=== PATIENT | female | born 1975 | race Caucasian/White ===

== ENCOUNTER → 2017-10-28 17:59 | Outpatient (CLI) | payer OTHER, SELFPAY ==
--- NOTE | 2017-10-28 | CYSPIN_PTH ---
PATIENT: NEELIMA ARREDONDO LOC: [facility] U#:[id number] AGE/SX: 50/F ROOM: RE10/28/[address]: Dr. Natan Crocker MD : 1975 BED: DIS: SPEC #: [id number] RECD: 10/28/17 16:25 STATUS: MADELEINE MARIVEL #: [id number] ENRICO: 10/28/17 00:[address]: Natan Crocker DEPT: CYTOLOGY RECD BY: Carroll Delgado ENTERED: 10/29/17 07:52 SP TYPE: CYSPIN FL OTHR DR: Dr. Jeff Schuster MD Tissues: Urine Procedures: Pap Stain (control) Special Stain Group II Cytospin Fluid HEADER OPERATION: Not noted PRE-OP DIAGNOSIS: Hematuria TISSUE SUBMITTED: Urine for cytology DIAGNOSIS CYTOLOGY Urine for cytology (cytospin): Negative for malignant cells. AM:cong 10/30/17 COMMENT The specimen primarily contains squamous epithelial cells. Clinical correlation is suggested. CYTOLOGY STUDY Slides are reviewed. CYTOLOGY GROSS Received is 70 ml of cloudy orange fluid labeled with the patient's name and and designated per the requisition as urine. Submitted for cytology preparation. 10/29/17 TC:5 CPT: 47451
[2017-10-28 18:01] LABS: Cytology, Body Fluid / CSF SEE PATHOLOGY REPORT
== END ==
PROVIDERS: Family Provider Family Medicine; PCP Family Medicine; Visit Provider Urology
DX: R31.9 Hematuria, unspecified (principal)
CPT/HCPCS: 87086; 87088; 88108; 88313

== ENCOUNTER → 2018-01-27 17:50 | Outpatient (CLI) | payer OTHER, SELFPAY ==
--- NOTE | 2018-01-27 09:30 | CYSPIN_PTH ---
PATIENT: NEELIMA ARREDONDO LOC: [facility] U#:[id number] AGE/SX: 50/F ROOM: RE01/27/[address]: Dr. Natan Crocker MD : 1975 BED: DIS: SPEC #: [id number] RECD: 01/27/18 17:43 STATUS: MADELEINE MARIVEL #: [id number] ENRICO: 01/27/18 09:[address]: Natna Crocker DEPT: CYTOLOGY RECD BY: Carroll Delgado Tissues: Urine Procedures: Pap Stain (control) Special Stain Group II Cytospin Fluid HEADER OPERATION: Not noted PRE-OP DIAGNOSIS: Hematuria TISSUE SUBMITTED: Urine for cytology DIAGNOSIS CYTOLOGY Urine for cytology (cytospin): Negative for malignant cells. AM:cong 01/29/18 COMMENT The specimen primarily contains benign squamous epithelial cells. Clinical correlation is suggested. CYTOLOGY STUDY Slides are reviewed. CYTOLOGY GROSS Received is 60 ml of clear viral fluid labeled with the patient's name and and designated per the requisition as urine. Submitted for cytology preparation. 01/28/18 TC:5 CPT: 51739
[2018-01-27 17:54] LABS: Cytology, Body Fluid / CSF SEE PATHOLOGY REPORT
== END ==
PROVIDERS: Visit Provider Urology
DX: R31.9 Hematuria, unspecified (principal)
CPT/HCPCS: 88108; 88313

== ENCOUNTER → 2018-06-13 07:18 | Outpatient (CLI) | payer OTHER, SELFPAY ==
--- NOTE | 2018-06-13 07:22 | BI_ITS ---
MAMMOGRAPHY - BILATERAL SCREENING REASON FOR EXAM: Female, 43 years old. Routine annual screening examination. PERTINENT HISTORY: Non-contributory. TECHNIQUE: Digital bilateral breast sheyla (3D mammographic acquisition) in the CC and MLO projections. 2-D mediolateral oblique (MLO) and craniocaudad (CC) views of both breasts were obtained. CAD: Full Field Digital Mammography with Computer Added Detection was performed. COMPARISON: None. Baseline examination. FINDINGS: Breast Composition: The breasts are heterogeneously dense, which may obscure small masses. There are no dominant masses or suspicious calcifications. No other significant abnormalities are identified. BI/SCREENING MAMM (CAD), BILAT IMPRESSION: Negative screening mammogram. Yearly followup mammogram recommended. (A) ASSESSMENT CATEGORY: Approximately 10% of breast cancers are not detected by mammography. A normal mammogram should not delay biopsy of a clinically suspicious abnormality. [id number] Electronically Signed: Ollie Leigh MD at 9:19 EST Tel [phone], Service support ,
--- OUTSIDE RECORDS SUMMARY | 2018-08-08 01:08 | XMS RPT_ITS ---
:1975 Author Organization [facility] Care Team Providers Name Role Phone Natan Crocker Attending Unavailable Jeff Schuster Primary Care Unavailable Natan Crocker Referring Unavailable Natan Crocker Attending Unavailable Natan Crocker Referring Unavailable Aimee Castro Attending Unavailable Jeff Schuster Referring Unavailable TiptonAimee lomeli Attending Unavailable Aimee Castro Referring Unavailable Jeff Schuster Primary Care Unavailable PROBLEMS PROBLEMS No Problem Records FoundPROCEDURES PROCEDURES No Procedure Records FoundRESULTS RESULTS SCREENING MAMM (CAD), Observed: 06/13/2018 Status: F Source: RAYNA BILAT 7:22 AM [facility] REPOSITORY [facility] Imaging Services [address] [place] [address] SCREENING MAMM (CAD), BILAT MR#: [id number] Acct: [id number] Name: ARNULFONEELIMA Nick Rep #: [id number] : 1975 F 43 From: Ollie Leigh MD PCP: Jeff Schuster MD Status: REG CLI Study: SCREENING MAMM (CAD), BILAT Date of Exam: 06/13/18 Exam# [id number] Ordering Dr: Aimee Castro ISOBUTYLENE OPERATOR CHIEF-C ADDENDUM by Ollie Leigh MD on 06/13/18 at 1501 ADDENDUM This is an addendum report for BIRADS category. BIRADS: Category 1. Electronically Signed: Ollie Leigh MD at 15:01 EST Tel [phone], Service support , 06/13/18 1501 Date cc: VISHAL Castro; Jeff Schuster MD * Signed ADDENDUM by Ollie Leigh MD on 06/13/18 at 1501 BI/SCREENING MAMM (CAD), BILAT 06/13/18 1507 Date cc: VISHAL Castro; Jeff Schuster MD * Signed MAMMOGRAPHY - BILATERAL SCREENING REASON FOR EXAM: Female, 43 years old. Routine annual screening examination. PERTINENT HISTORY: Non-contributory. TECHNIQUE: Digital bilateral breast sheyla (3D mammographic acquisition) in the CC and MLO projections. 2-D mediolateral oblique (MLO) and craniocaudad (CC) views of both breasts were obtained. CAD: Full Field Digital Mammography with Computer Added Detection was performed. COMPARISON: None. Baseline examination. FINDINGS: Breast Composition: The breasts are heterogeneously dense, which may obscure small masses. There are no dominant masses or suspicious calcifications. No other significant abnormalities are identified. BI/SCREENING MAMM (CAD), BILAT IMPRESSION: Negative screening mammogram. Yearly followup mammogram recommended. (A) ASSESSMENT CATEGORY: Approximately 10% of breast cancers are not detected by mammography. A normal mammogram should not delay biopsy of a clinically suspicious abnormality. [id number] Electronically Signed: Ollie Leigh MD at 9:19 EST Tel [phone], Service support , CC: VISHAL Castro; Jeff Schuster MD Road Train Driver: Signed EQUINE VET OFFICE VISIT Observed: 05/05/2018 Status: F Source: NEOS[place] REPORT 10:02 AM [facility] [address] [place] [address] OFFICE VISIT Date of Service: 05/05/18 MR#: [id number] Acct: [id number] Name: NEELIMA ARREDONDO Rep #: [id number] : 1975 Provider: VISHAL Castro Age/Sex: 43/F Location: [facility] Status: Signed Intake Vital Signs05/05/18 Height 5 ft 3 in 05/05/18 Weight: 204 lb 2 oz 05/05/18 Body Mass Index (BMI) 36.1 05/05/18 Blood Pressure 110/78 Intake Visit Reasons: New patient vaginal issues Chief Complaint: NEW annual Gluer And Wedger Required: No Is patient in pain?: No Allergies hydromorphone [From Dilaudid] Allergy (Mild, Verified 05/05/18 09:05) Other Medications NK 05/05/18 [History Confirmed 05/05/18] Is last menstrual period known: No Post menopausal: No Patient : No : No PFSH Medical History History of anxiety (Acute) Surgical History History of delivery (Acute) S/P KHANG (total abdominal hysterectomy) (Acute) Family History Father Heart disease Social History Smoking Status: Never smoker alcohol intake: current details: social substance use type: does not use caffeine: Yes what type of physical activity do you participate in: yoga seatbelt use: always do you feel safe at home: Yes additional social history: Hooked Pregancy History 3 Elective abortions Hx Para 3 Spontaneous abortions Past Pregnancies Del. DateName GA/Weeks Outcome Route Bth WeighInfant GeLabor LgtAnesthesiDel LocatProvider FOB t n h a n HPI New patient vaginal issues: Details: NEELIMA ARREDONDO is a 43 year old who presents for new patient annual exam. [facility] hysterectomy 2008 with one ovary removed due to endometriosis. [facility] has seen Dr. Crocker and Dr. Valenzuela for recurrent hematuria but no cause has been found. [facility] she is very nervous about this as still is randomly happening. She denies discomfort. Note per chart negative negative cytology from cystoscope. [facility] has never had urine specimen collected with cath. [facility] had normal US per Dr. Valenzuela office but I do not have those results. Last PAP: 2008 History of abnormal PAP: in her 20s but repeat negative, no treatment Last mammogram: none Female Reproductive History Questions: Metorrhagia: No, Sexually active: Yes, Dyspareunia: No, PCB: Yes (rarely but seems to occur when having hematuria) Menopausal Treatment: No HRT ROS Const Constitutional: Denies fatigue, weight gain or weight loss Cardio Card: Denies chest pain Resp Resp: Denies cough or shortness of breath with activity GI GI: Denies abdominal pain, constipation, change in stools, vomiting or bloating : Reports as per HPI; denies urinary frequency, pelvic pain, urinary urgency, vaginal discharge, vaginal itching, urinary incontinence or difficulty urinating Exam Const General: cooperative, healthy appearing, no acute distress, well developed Orientation: alert, oriented to person, oriented to place HENHI Head: normal to inspection Neck Neck: normal visual inspection Thyroid: thyroid normal Lymphatic: no lymphadenopathy noted Chest Breast inspection: normal inspection of the breasts, normal inspection of the axillae Breast palpation: normal palpation of the breasts (increased generalize thickness outer lateral side left breast), normal palpation of the axillae, no axillary lymphadenopathy Resp Effort AND Inspection: normal respiratory effort GI Palpation: soft, nontender, no masses Rectal Exam: deferred External Female Exam: normal external appearance, normal appearance of the urethra Urethra: normal appearance of the urethra, normal palpation Speculum Exam - Vagina: normal appearance of the vagina, normal vaginal discharge Speculum Exam - Cervix: cervix absent Bimanual Exam- Vagina AND Uterus: normal bimanual exam, uterus absent Bimanual Exam- Adnexa, other: normal adnexae, no adnexal masses, adnexae non-tender, pelvic support normal Pelvic Support: normal Neuro General: alert, oriented x3 Psych Affect: normal affect Assessment AND Plan Problems 1. Encounter for gynecological examination with abnormal finding Z01.411 2. Hematuria, unspecified type R31.9 3. Encounter for screening mammogram for malignant neoplasm of breast Z12.31 Plan Completed breast and pelvic exam Reviewed diet and exercise Pap NA Mammogram ordered Instructed that when visual blood in urine, call office and will bring in for cath UA and culture to confirm if blood is in fact from bladder RTO 1 year, prn with problems Aimee Castro DERMATOLOGY NURSE Orders Orders: Coding Level of Care Code Off vis,new,prev 40-64yrs Diagnoses Encounter for gynecological examination with abnormal finding Z01.411 Gynecological examination findings: abnormal findings PRESENT Hematuria, unspecified type R31.9 Hematuria type: unspecified type Encounter for screening mammogram for malignant neoplasm of breast Z12.31 05/05/18 1002 <Electronically signed by Aimee PALUMBO> Date Aimee PALUMBO Cosigner Signature: Date (if applicable) CC: CYTOSPIN ON FLUID Observed: 01/27/2018 Status: F Source: RAYNA 9:30 AM [facility] Patient: NEELIMA ARREDONDO : 1975 (42/F) Acct Num: [id number] Phys: Lizzette PIERRE,Natan Seymour Unit Num: [id number] Loc: [facility] Specimen: [id number] Received: 01/27/181742 Spec Type: CYSPIN FL TISSUES TISSUES: Urine COMMENT The specimen primarily contains benign squamous epithelial cells. Clinical correlation is suggested. CYTOLOGY GROSS Received is 60 ml of clear viral fluid labeled with the patient's name and and designated per the requisition as urine. Submitted for cytology preparation. / 01/28/18 TC:5 CPT: 27561 CYTOLOGY STUDY Slides are reviewed. DIAGNOSIS CYTOLOGY Urine for cytology (cytospin): Negative for malignant cells. AM:rg 01/29/18 HEADER OPERATION: Not noted PRE-OP DIAGNOSIS: Hematuria TISSUE SUBMITTED: Urine for cytology Signed Andrew Rosa 01/29/18 <signature on file> Performed By: #### PCYSPIN #### [facility] [address] [place], [address] CYTOLOGY, BODY FLUID / Collected: 01/27/2018 Status: F Source: RAYNA CSF 9:30 AM [facility] Order Comment: Specimen Source: URINE TYPE CODE TESTS RESULT OUT OF RANGE REFERENCE UNITS LAB L350.1000 SEE Normal PATHOLOGY CYTOLOGY,BF REPORT /CSF Result Comment: Specimen submitted to Anatomical Pathology Department for testing. Performed By: #### L350.1000 #### [facility] [place], [address] Observed: 10/28/2017 Status: F Source: RAYNA CULTURE, URINE 4:25 PM [facility] Urine Culture ORGANISM 1: Mixed Gram Positive Organisms [place] Count 1000-10,000 MIX CULTURE Mixed contaminants. Submit a new specimen if indicated. Performed By: #### M100.0650 #### [facility] [address] [place], [address] CYTOLOGY, BODY FLUID / Collected: 10/28/2017 Status: F Source: RAYNA CSF 4:25 PM [facility] Order Comment: Specimen Source: URINE TYPE CODE TESTS RESULT OUT OF RANGE REFERENCE UNITS LAB L350.1000 SEE Normal PATHOLOGY CYTOLOGY,BF REPORT /CSF Result Comment: Specimen submitted to Anatomical Pathology Department for testing. Performed By: #### L350.1000 #### [facility] [address] [place], [address] CYTOSPIN ON FLUID Observed: 10/28/2017 Status: F Source: NEOS[place] 12:00 AM [facility] Patient: NEELIMA ROSSI : 1975 (42/F) Acct Num: [id number] Phys: Lizzette PIERRE,Natan Seymour Unit Num: [id number] Loc: [facility] Specimen: [id number] Received: 10/28/171624 Spec Type: CYSPIN FL TISSUES TISSUES: Urine COMMENT The specimen primarily contains squamous epithelial cells. Clinical correlation is suggested. CYTOLOGY GROSS Received is 70 ml of cloudy orange fluid labeled with the patient's name and and designated per the requisition as urine. Submitted for cytology preparation. / 10/29/17 TC:5 CPT: 49641 CYTOLOGY STUDY Slides are reviewed. DIAGNOSIS CYTOLOGY Urine for cytology (cytospin): Negative for malignant cells. AM:rg 10/30/17 HEADER OPERATION: Not noted PRE-OP DIAGNOSIS: Hematuria TISSUE SUBMITTED: Urine for cytology Signed Andrew Rosa 10/30/17 <signature on file> Performed By: #### PCYSPIN #### [facility] [address] [place], [address] ALLERGIES ALLERGIES DATE TYPE / CODE NAME / CODE REACTION SEVERITY SOURCE 05/05/2018 Drug hydromorphon Other [facility] Allergy/4160 [id number] [facility] [address](SNOMED (RXNORM) Repository CT) ENCOUNTERS ENCOUNTERS ADMIT/DISCHARGE ACCOUNT ADMITTING ENCOUNTER LOCATION SOURCE NUMBER CLASS 06/13/2018 [id number] Ambulatory [address] ing:OPBI Repository 05/05/2018/ [id number] Ambulatory BMSBuilding:B [place] [address] 2 [facility] Repository 01/27/2018 [id number] Ambulatory [place] [facility] ing:LABSPEC Repository 10/28/2017 [id number] [place] [facility] ing:LABSPEC Repository PAYERS PAYERS ENCOUNTER GUARANTOR PAYER SUBSCRIBER SOURCE 06/13/[address] [id number] Insurance:CIGNAPolicy SANCHEZDOB: [place]: [id number] [id number] Repository [address]Euj: (330) Date:0725-41-52NP [phone] () 575386FTPDOKBBFNB, [place] [address]ZD: 06/13/2018 Secondary NOT GIVENUNK [place] Insurance:SELF PAY [facility] Number: Effective Repository Date:2018-05-05 05/05/[address] [id number] Insurance:CIGNAPolicy SANCHEZDOB: [facility] [place] Number: [id number], [place] [id number] Repository [address]Lwk: (330) Date:4807-29-27XQ [phone] () [id number], [place] [address]WC: 05/05/2018 Secondary NOT GIVENUNK [place] Insurance:SELF PAY [facility] Number: Effective Repository Date:2018-05-05 01/27/[address] [id number] Insurance:CIGNAPolicy SANCHEZDOB: [facility] [place] Number: [id number], [place] [id number] Repository [address]Ndg: (330) Date:8758-93-92WG [phone] () 300875YFVUUFPUGPU, [place] [address]YC: 01/27/2018 Secondary NOT GIVENUNK [place] Insurance:SELF PAY [facility] Number: Effective Repository Date:2018-01-27 10/28/2017 NEELIMA Nick [address] [id number] Insurance:Corrine MAKB: [facility] Number: [id number] [id number] Repository [address]Lwd: (330) Date:5692-86-79QA [phone] () 027912LUUIARCZPIR, [place] [address]XT: 10/28/2017 Secondary NOT GIVENUNK [place] Insurance:SELF PAY [facility] Number: Effective Repository Date:2017-10-28
== END ==
PROVIDERS: Family Provider Family Medicine; PCP Family Medicine; Referring Provider Nurse Practitioner Women's Health; Visit Provider Nurse Practitioner Women's Health
DX: Z12.31 Encounter for screening mammogram for malignant neoplasm of breast (principal)
CPT/HCPCS: 77063; 77067

== ENCOUNTER → 2019-11-02 | Outpatient (CLI) | payer OTHER, SELFPAY ==
[2019-11-02 16:14] VITALS: BMI 36.1
== END | disposition home or self-care (01) ==
LOC: LABSPEC 11-03 06:18
PROVIDERS: PCP Family Medicine; Visit Provider Obstetrics & Gynecology
DX: N89.8 Other specified noninflammatory disorders of vagina (principal)
CPT/HCPCS: 87086; 87088

== ENCOUNTER → 2019-11-06 14:04 | Outpatient (CLI) | payer OTHER, SELFPAY ==
[2019-11-02 16:14] VITALS: BMI 36.1
--- NOTE | 2019-11-06 14:06 | US_ITS ---
STUDY: ULTRASOUND TRANSVAGINAL CLINICAL: Female, 44 years old. Vaginal bleeding. History of hysterectomy and left oophorectomy 2008. History of endometriosis. TECHNIQUE: Transvaginal COMPARISON: CT of the abdomen and pelvis, October 04, 2016. FINDINGS: The uterus is surgically absent. The left ovary is surgically absent. The right ovary measures 4.8 x 4.8 x 1.9 cm. There is evidence of a 2.2 x 2.5 x 1.6 cm cyst as well as a 1.7 x 2.1 x 1.1 cm cyst. These are thought to correlate with the 2 cysts seen on the prior CT, these previously measured 5.5 x 5.3 x 3.8 cm and 3.0 x 1.2 x 2.3 cm in size. Although they have decreased in size when compared to the prior exam. There is no evidence of adnexal mass. There is normal vascularity on Doppler imaging. There is no free fluid in the pelvis. US/Pelvic (Non ) IMPRESSION: 1. Status post hysterectomy and left oophrectomy. 2. Prominent right ovarian cysts. These have decreased in size when compared to the CT of October 04, 2016. Electronically Signed: Jason Mena DO at 16:34 EDT Tel [phone], Service support ,
--- NOTE | 2019-11-06 14:06 | US_ITS ---
STUDY: ULTRASOUND TRANSVAGINAL CLINICAL: Female, 44 years old. Vaginal bleeding. History of hysterectomy and left oophorectomy 2008. History of endometriosis. TECHNIQUE: Transvaginal COMPARISON: CT of the abdomen and pelvis, October 04, 2016. FINDINGS: The uterus is surgically absent. The left ovary is surgically absent. The right ovary measures 4.8 x 4.8 x 1.9 cm. There is evidence of a 2.2 x 2.5 x 1.6 cm cyst as well as a 1.7 x 2.1 x 1.1 cm cyst. These are thought to correlate with the 2 cysts seen on the prior CT, these previously measured 5.5 x 5.3 x 3.8 cm and 3.0 x 1.2 x 2.3 cm in size. Although they have decreased in size when compared to the prior exam. There is no evidence of adnexal mass. There is normal vascularity on Doppler imaging. There is no free fluid in the pelvis. US/Transvaginal Non- IMPRESSION: 1. Status post hysterectomy and left oophrectomy. 2. Prominent right ovarian cysts. These have decreased in size when compared to the CT of October 04, 2016. Electronically Signed: Jason Mena DO at 16:34 EDT Tel [phone], Service support ,
== END ==
PROVIDERS: PCP Family Medicine; Referring Provider Obstetrics & Gynecology; Visit Provider Obstetrics & Gynecology
DX: N93.9 Abnormal uterine and vaginal bleeding, unspecified (principal)
CPT/HCPCS: 76830; 76856

== ENCOUNTER 2021-07-25 15:54 | Outpatient (CLI) | payer BC, SELFPAY ==
--- NOTE | 2021-07-25 15:57 | BI_ITS ---
MAMMOGRAPHY - BILATERAL SCREENING REASON FOR EXAM: Female, 46 years old. Routine annual screening examination. PERTINENT HISTORY: Non-contributory. TECHNIQUE: Digital bilateral breast yarelis (3D mammographic acquisition) in the CC and MLO projections. 2-D mediolateral oblique (MLO) and craniocaudad (CC) views of both breasts were obtained. CAD: Full Field Digital Mammography with Computer Added Detection was performed. COMPARISON: None. Baseline examination. FINDINGS: Breast Composition: There are scattered areas of fibroglandular density. There are no dominant masses or suspicious calcifications. No other significant abnormalities are identified. BI/SCRN MAMM (CAD)W/YARELIS BILAT IMPRESSION: Negative screening mammogram. Yearly followup mammogram recommended. (A) ASSESSMENT CATEGORY: BIRADS Category 1: Negative. A letter regarding these results will be sent to the patient by the facility within 30 days. Approximately 10% of breast cancers are not detected by mammography. A normal mammogram should not delay biopsy of a clinically suspicious abnormality. [id number] Electronically Signed: Ollie Leigh MD at 8:34 EST , Service support ,
== END 2021-07-25 23:59 | disposition short-term general hospital (02) ==
LOC: OPBI 15:55
PROVIDERS: PCP Family Medicine; Referring Provider Obstetrics & Gynecology; Visit Provider Obstetrics & Gynecology
DX: Z12.31 Encounter for screening mammogram for malignant neoplasm of breast (principal)
CPT/HCPCS: 77063; 77067

== ENCOUNTER → 2022-03-29 | Outpatient (CLI) | payer BC, SELFPAY | END | disposition home or self-care (01) | LOC: LABSPEC 15:04 | PROVIDERS: PCP Family Medicine; Visit Provider Family Medicine | DX: R30.0 Dysuria (principal) | CPT/HCPCS: 87086; 87088 ==

== ENCOUNTER → 2022-03-30 | Outpatient (CLI) | payer BC, SELFPAY ==
[2022-03-30 08:57] LABS: Absolute Lymphocyte Count 1.66 X10^3/uL (0.83-4.51); Absolute Neutrophil Count 2.2 X10^3/uL (2.0-7.7); Basophil# 0.03 X10^3/uL; Basophil% 0.7 % (0-1); Eosinophil# 0.11 X10^3/uL; Eosinophils% 2.5 % (0-5); Lymphocyte # 1.66 X10^3/ul (0.83-4.51); Mean Corp Hgb Conc 32.6 g/dL (32-36); Mean Corpuscular Hgb 31.1 pg (27.0-32.0); Mean Corpuscular Volume 95.6 fL (81-99); Mean Platelet Vol. 9.7 fl (6.2-12.0); Monocyte# 0.34 X10^3/uL; Monocyte% 7.8 % (0-10); NRBC Flagged by Analyzer 0 % (0-5); Neutrophil # 2.22 X10^3/uL (2.7-7.7); Neutrophil % 50.8 % (47-70); Platelet Count 233 K/mm3 (150-450); RBC Distribution Width CV 12.6 % (11.6-14.6); RBC Distribution Width SD 43.8 fl (35.1-43.9); White Blood Count 4.4 K/mm3 (4.4-11.0)
[2022-03-30 09:26] LABS: Vitamin D,25 Hydroxy 30.5 ng/mL
[2022-03-30 09:43] LABS: Cholesterol 163 mg/dL (200); Glucose 87 mg/dL (74-106); High Density Lipoprotein 78 mg/dL; Thyroid Stim Hormone (TSH) 5.57 uIU/mL (0.358-3.74); Triglycerides 80 mg/dL; Very Low Density Lipoprotein 16 mg/dL (5-40)
== END | disposition home or self-care (01) ==
LOC: PAVLAB 08:39
PROVIDERS: Nurse Practitioner Women's Health; PCP Family Medicine; Referring Provider Obstetrics & Gynecology; Visit Provider Obstetrics & Gynecology
DX: R53.83 Other fatigue (principal); N95.1 Menopausal and female climacteric states; Z13.1 Encounter for screening for diabetes mellitus; Z13.29 Encounter for screening for other suspected endocrine disorder; Z13.21 Encounter for screening for nutritional disorder
CPT/HCPCS: 36415; 80061; 82306; 82947; 84443; 85025

== ENCOUNTER → 2022-04-12 | Outpatient (CLI) | payer BC, SELFPAY ==
[2022-04-12 13:07] LABS: Free T3 2.8 pg/mL (2.18-3.98); T4 Free Direct 0.94 ng/dL (0.76-1.46); Thyroid Stim Hormone (TSH) 5.25 uIU/mL (0.358-3.74)
== END | disposition home or self-care (01) ==
LOC: MFPLAB 11:27
PROVIDERS: PCP Family Medicine; Referring Provider Family Medicine; Visit Provider Family Medicine
DX: E03.9 Hypothyroidism, unspecified (principal)
CPT/HCPCS: 36415; 84439; 84443; 84481

== ENCOUNTER → 2022-07-04 | Outpatient (CLI) | payer BC, SELFPAY ==
[2022-07-04 16:00] LABS: Thyroid Stim Hormone (TSH) 2.87 uIU/mL (0.358-3.74)
== END | disposition home or self-care (01) ==
LOC: MFPLAB 10:38
PROVIDERS: PCP Family Medicine; Referring Provider Family Medicine; Visit Provider Family Medicine
DX: E03.9 Hypothyroidism, unspecified (principal)
CPT/HCPCS: 36415; 84443

== ENCOUNTER → 2022-07-26 | Outpatient (CLI) | payer BC, SELFPAY ==
--- NOTE | 2022-07-26 08:36 | BI_ITS ---
MAMMOGRAPHY - BILATERAL SCREENING REASON FOR EXAM: Female, 47 years old. Routine annual screening examination. PERTINENT HISTORY: Non-contributory. TECHNIQUE: Digital bilateral breast yarelis (3D mammographic acquisition) in the CC and MLO projections. 2-D mediolateral oblique (MLO) and craniocaudad (CC) views of both breasts were obtained. CAD: Full Field Digital Mammography with Computer Added Detection was performed. COMPARISON: Comparison is made with prior study dated 07/25/2021 and 06/13/2018. FINDINGS: Breast Composition: There are scattered areas of fibroglandular density. There are no dominant masses or suspicious calcifications. No other significant abnormalities are identified. There has been no significant change since the prior study. BI/SCRN MAMM (CAD)W/YARELIS BILAT IMPRESSION: Stable bilateral screening mammogram. Yearly follow-up mammogram recommended. (A) ASSESSMENT CATEGORY: BIRADS Category 1: Negative. A letter regarding these results will be sent to the patient by the facility within 30 days. Approximately 10% of breast cancers are not detected by mammography. A normal mammogram should not delay biopsy of a clinically suspicious abnormality. [id number] Electronically Signed: Ollie Leigh MD at 10:02 EST ,
== END | disposition home or self-care (01) ==
LOC: OPBI 08:34
PROVIDERS: PCP Family Medicine; Visit Provider Nurse Practitioner Women's Health
DX: Z12.31 Encounter for screening mammogram for malignant neoplasm of breast (principal)
CPT/HCPCS: 77063; 77067

== ENCOUNTER → 2023-01-02 | Outpatient (CLI) | payer BC, SELFPAY ==
[2023-01-02 13:52] LABS: Free T3 2.3 pg/mL (2.18-3.98); T4 Free Direct 0.92 ng/dL (0.76-1.46); Thyroid Stim Hormone (TSH) 4.22 uIU/mL (0.358-3.74)
== END | disposition home or self-care (01) ==
LOC: MFPLAB 09:34
PROVIDERS: PCP Family Medicine; Visit Provider Family Medicine
DX: E03.9 Hypothyroidism, unspecified (principal)
CPT/HCPCS: 36415; 84439; 84443; 84481

== ENCOUNTER → 2023-04-04 | Outpatient (CLI) | payer BC, SELFPAY ==
[2023-04-04 10:14] LABS: Absolute Lymphocyte Count 1.85 X10^3/uL (0.83-4.51); Absolute Neutrophil Count 2.2 X10^3/uL (2.0-7.7); Basophil# 0.03 X10^3/uL; Basophil% 0.6 % (0-1); Eosinophil# 0.29 X10^3/uL; Eosinophils% 6.1 % (0-5); Hematocrit 45.1 % (37-47); Hemoglobin 14.6 g/dL (12.0-15.0); Lymphocyte # 1.85 X10^3/ul (0.83-4.51); Lymphocyte % 38.7 % (19-41); Mean Corp Hgb Conc 32.4 g/dL (32-36); Mean Corpuscular Hgb 31.1 pg (27.0-32.0); Mean Corpuscular Volume 96.2 fL (81-99); Monocyte# 0.43 X10^3/uL; NRBC Flagged by Analyzer 0 % (0-5); Neutrophil # 2.16 X10^3/uL (2.7-7.7); Neutrophil % 45.2 % (47-70); Platelet Count 263 K/mm3 (150-450); RBC Distribution Width CV 11.7 % (11.6-14.6); RBC Distribution Width SD 40.7 fl (35.1-43.9); Red Blood Count 4.69 M/mm3 (4.2-5.4); White Blood Count 4.8 K/mm3 (4.4-11.0)
[2023-04-04 10:52] LABS: Anion Gap 1 (5-15); BUN 16 mg/dL (7-18); BUN/Creat Ratio 22.2 RATIO (10-20); Calcium,Total 9.4 mg/dL (8.5-10.1); Chloride 108 mmol/L (98-107); Creatinine, Serum 0.72 mg/dL (0.55-1.02); EST Glomerular Filtration Rate 92 mL/min (>60); Est Glom Filt Rate - Afr Amer 112 mL/min (>60); Free T3 2.7 pg/mL (2.18-3.98); Glucose 97 mg/dL (74-106); Potassium 4.1 mmol/L (3.5-5.1); Sodium Level 139 mmol/L (136-145); Thyroid Stim Hormone (TSH) 2.91 uIU/mL (0.358-3.74)
== END | disposition home or self-care (01) ==
LOC: MFPLAB 09:32
PROVIDERS: PCP Family Medicine; Visit Provider Family Medicine
DX: E03.9 Hypothyroidism, unspecified (principal); R53.83 Other fatigue
CPT/HCPCS: 36415; 80048; 84439; 84443; 84481; 85025

== ENCOUNTER → 2023-05-01 | Outpatient (CLI) | payer BC, SELFPAY ==
[2023-05-01 12:32] LABS: Magnesium 2.3 mg/dL (1.6-2.6)
== END | disposition home or self-care (01) ==
LOC: LAB 11:55
PROVIDERS: PCP Family Medicine; Referring Provider Internal Medicine Cardiovascular Disease; Visit Provider Internal Medicine Cardiovascular Disease
DX: I49.1 Atrial premature depolarization (principal); R00.2 Palpitations
CPT/HCPCS: 36415; 83735

== ENCOUNTER → 2023-05-29 | Outpatient (CLI) | payer BC, SELFPAY ==
[2023-05-29 10:29] LABS: Estradiol < 11.0 pg/mL; Follicle Stimulating Hormone 71.9 mIU/mL
== END | disposition home or self-care (01) ==
PROVIDERS: PCP Family Medicine; Referring Provider Obstetrics & Gynecology; Visit Provider Obstetrics & Gynecology
DX: N95.1 Menopausal and female climacteric states (principal)
CPT/HCPCS: 36415; 82670; 83001

== ENCOUNTER → 2023-05-31 | Outpatient (CLI) | payer BC, SELFPAY ==
--- NOTE | 2023-05-31 09:04 | ECHOCS_ITS ---
Reason For Study: PALPITATIONS Procedure This was a 2D Doppler, Color Flow transthoracic echocardiogram. The study was technically difficult. Contrast injection was performed. Exam performed in department. Left Ventricle Normal size and thickness. The left ventricular ejection fraction is 65 %. Normal diastololic function. Right Ventricle Normal right ventricle. Atria The left and right atria are normal. Prominent eustachian valve. Mitral Valve The mitral valve is structurally normal. No prolapse or stenosis seen. Tricuspid Valve The tricuspid valve is not well visualized. Unable to estimate RV systolic pressure due to inadequate jet, pulmonary artery pressure probably normal. Aortic Valve Trisinus/trileaflet aortic valve. Pulmonic Valve The pulmonic valve is not well visualized. Great Vessels Normal sized aortic root. Pericardium/Pleural No pericardial effusion. Medication 22 gauge I.V. with prn adaptor inserted into right arm. Diluted definity 2ml given slow IV push to enhance endocardial definition. MMode/2D Measurements & Calculations LVIDd: 4.0 cm IVSd: 1.1 cm Ao root diam: 3.4 cm LVIDs: 2.8 cm LVPWd: 0.93 cm FS: 30.3 % LAV(MOD-bp): 35.7 ml LVAd ap4: 36.2 cm2 SV(MOD-sp4): 76.8 ml LAV(MOD-bp) Indexed: 18.6 ml/m2 LVLd ap4: 8.7 cm LAV(MOD-sp2): 31.6 ml EDV(MOD-sp4): 123.3 ml LAV(MOD-sp4): 32.5 ml EDV(sp4-el): 128.6 ml LVAs ap4: 20.3 cm2 LVLs ap4: 7.1 cm ESV(MOD-sp4): 46.6 ml ESV(sp4-el): 49.3 ml EF(MOD-sp4): 62.3 % EF(sp4-el): 61.7 % SV(sp4-el): 79.3 ml LA A4 area: 15.3 cm2 LA dimension(2D): 3.1 cm RA A4 area: 16.8 cm2 TAPSE: 2.2 cm Time Measurements MV dec time: 0.19 sec Doppler Measurements & Calculations MV E max vic: 63.7 cm/sec Lat Peak E' Vic: 11.3 cm/sec Med Peak E' Vic: 13.5 cm/sec MV A max vic: 57.2 cm/sec E/E' lat: 5.6 E/E' med: 4.7 MV E/A: 1.1 MV V2 max: 73.1 cm/sec MV dec slope: 336.3 cm/sec2 Ao V2 max: 108.7 cm/sec MV max P.1 mmHg Ao max P.7 mmHg MV V2 mean: 41.8 cm/sec Ao V2 mean: 72.6 cm/sec MV mean P.80 mmHg Ao mean P.5 mmHg MV V2 VTI: 29.7 cm Ao V2 VTI: 26.0 cm AV (velocity ratio): 0.95 LV V1 max: 96.2 cm/sec PA V2 max: 68.4 cm/sec LV V1 max P.7 mmHg PA V2 mean: 48.4 cm/sec LV V1 mean P.0 mmHg LV V1 mean: 66.1 cm/sec LV V1 VTI: 24.7 cm ECHO/Echo Complete W/ Contrast Interpretation Summary The left ventricular ejection fraction is 65 %. Ordering Physician: Tawanda Larson Referring Physician: Tawanda Larson Performed By: Emily Davis RCS
== END | disposition home or self-care (01) ==
PROVIDERS: PCP Family Medicine; Referring Provider Internal Medicine Cardiovascular Disease; Visit Provider Internal Medicine Cardiovascular Disease
DX: R00.2 Palpitations (principal)
CPT/HCPCS: 93306; Q9957; A4216; C8929

== ENCOUNTER → 2023-07-01 | Outpatient (CLI) | payer BC, SELFPAY ==
[2023-07-01 16:38] LABS: Free T3 2.4 pg/mL (2.18-3.98); T4 Free Direct 1.04 ng/dL (0.76-1.46); Thyroid Stim Hormone (TSH) 4.28 uIU/mL (0.358-3.74)
== END | disposition home or self-care (01) ==
LOC: MFPLAB 11:39
PROVIDERS: PCP Family Medicine; Visit Provider Family Medicine
DX: E03.9 Hypothyroidism, unspecified (principal)
CPT/HCPCS: 36415; 84439; 84443; 84481

== ENCOUNTER → 2023-09-25 | Outpatient (CLI) | payer BC, SELFPAY ==
--- NOTE | 2023-09-25 08:13 | BI_ITS ---
MAMMOGRAPHY - BILATERAL SCREENING REASON FOR EXAM: Female, 48 years old. Routine annual screening examination. PERTINENT HISTORY: Non-contributory. TECHNIQUE: Digital bilateral breast yarelis (3D mammographic acquisition) in the CC and MLO projections. 2-D mediolateral oblique (MLO) and craniocaudad (CC) views of both breasts were obtained. CAD: Full Field Digital Mammography with Computer Added Detection was performed. COMPARISON: Comparison is made with prior study dated July 26, 2022 and July 25, 2021. FINDINGS: Breast Composition: There are scattered areas of fibroglandular density. There are no dominant masses or suspicious calcifications. No other significant abnormalities are identified. There has been no significant change since the prior study. BI/SCRN MAMM (CAD)W/YARELIS BILAT IMPRESSION: Stable bilateral screening mammogram. Yearly follow-up mammogram recommended. (A) ASSESSMENT CATEGORY: BIRADS Category 1: Negative. A letter regarding these results will be sent to the patient by the facility within 30 days. Approximately 10% of breast cancers are not detected by mammography. A normal mammogram should not delay biopsy of a clinically suspicious abnormality. [id number] Electronically Signed: Ollie Leigh MD at 12:05 EDT ,
== END | disposition home or self-care (01) ==
LOC: OPBI 08:13
PROVIDERS: PCP Family Medicine; Referring Provider Obstetrics & Gynecology; Visit Provider Obstetrics & Gynecology
DX: Z12.31 Encounter for screening mammogram for malignant neoplasm of breast (principal)
CPT/HCPCS: 77063; 77067

== ENCOUNTER → 2023-12-05 | Outpatient (CLI) | payer BC, SELFPAY ==
[2023-12-05 10:00] LABS: Absolute Lymphocyte Count 1.57 X10^3/uL (0.83-4.51); Absolute Neutrophil Count 2.4 X10^3/uL (2.0-7.7); Basophil# 0.03 X10^3/uL; Basophil% 0.7 % (0-1); Eosinophil# 0.11 X10^3/uL; Eosinophils% 2.4 % (0-5); Hematocrit 43.3 % (37-47); Hemoglobin 14.3 g/dL (12.0-15.0); Lymphocyte # 1.57 X10^3/ul (0.83-4.51); Lymphocyte % 34.8 % (19-41); Mean Corpuscular Volume 93.9 fL (81-99); Mean Platelet Vol. 10.4 fl (6.2-12.0); Monocyte# 0.42 X10^3/uL; Monocyte% 9.3 % (0-10); NRBC Flagged by Analyzer 0 % (0-5); Neutrophil # 2.37 X10^3/uL (2.7-7.7); Neutrophil % 52.6 % (47-70); Platelet Count 235 K/mm3 (150-450); RBC Distribution Width CV 12.4 % (11.6-14.6); RBC Distribution Width SD 42.5 fl (35.1-43.9); Red Blood Count 4.61 M/mm3 (4.2-5.4); White Blood Count 4.5 K/mm3 (4.4-11.0)
[2023-12-05 11:04] LABS: Anion Gap 6 (5-15); BUN 10 mg/dL (7-18); BUN/Creat Ratio 15.8 RATIO (10-20); Calcium,Total 8.8 mg/dL (8.5-10.1); Chloride 109 mmol/L (98-107); Creatinine, Serum 0.63 mg/dL (0.55-1.02); EST Glomerular Filtration Rate 107 mL/min (>60); Est Glom Filt Rate - Afr Amer 130 mL/min (>60); Free T3 2.2 pg/mL (2.18-3.98); Glucose 86 mg/dL (74-106); Magnesium 2.1 mg/dL (1.6-2.6); Potassium 3.9 mmol/L (3.5-5.1); Sodium Level 139 mmol/L (136-145); T4 Free Direct 1.21 ng/dL (0.76-1.46); Thyroid Stim Hormone (TSH) 1.88 uIU/mL (0.358-3.74)
== END | disposition home or self-care (01) ==
LOC: MFPLAB 08:52
PROVIDERS: PCP Family Medicine; Visit Provider Family Medicine
DX: R53.83 Other fatigue (principal); E03.9 Hypothyroidism, unspecified
CPT/HCPCS: 36415; 80048; 83735; 84439; 84443; 84481; 85025

== ENCOUNTER → 2023-12-24 | Outpatient (CLI) | payer BC, SELFPAY ==
[2024-01-08 17:08] LABS: Antithrombin 3 Function 134 % (75-135); Protein C Antigen 119 % (60-150); Protein C, Functional 136 % (73-180); Protein S, Free 91 % (61-136); Protein S, Funtional 73 % (63-140); Protein S, Total 82 % (60-150)
== END | disposition home or self-care (01) ==
LOC: LAB 11:56
PROVIDERS: PCP Family Medicine; Referring Provider Obstetrics & Gynecology; Visit Provider Obstetrics & Gynecology
DX: N95.1 Menopausal and female climacteric states (principal); Z82.49 Family history of ischemic heart disease and other diseases of the circulatory system
CPT/HCPCS: 81241; 85300; 85302; 85303; 85305; 85306

== ENCOUNTER 2024-05-01 07:46 | Day surgery (SDC) | payer BC, SELFPAY ==
[2024-05-01] VITALS (7 sets, daily range): BP systolic 87–107; BP diastolic 64–77; PULSE 57–74; RESP 16; TEMP 36.2–36.6; O2SAT 96–100; BMI 31.6
--- NOTE | 2024-05-01 08:01 | PCM.PRE.AN2 ---
ASA Classification* ASA Classification ASA Classification: 2 Assessment & Plan Anesthesia* Anesthesia Assessment Anesthesia Assessment: Discussed sedation and/or anesthesia options, risks, benefits, and alternatives with patient/parents/legal guardian/POA. Questions invited. The patient/parents/legal guardian/POA seems to understand and agrees to proceed with anesthesia plan. Reviewed the physical assessment, medical history, allergy history and patient home medications list prior to surgery/procedure/anesthetic and documented any changes. Performed airway and anesthesia risk assessments. Anesthesia Type Anesthesia Type: MAC (see written pre anesthesia record for full assessment) Anesthesia Focused Assessment* Temperature: 97.8 F Pulse Rate: 57 Blood Pressure: 107/77 Respiratory Rate: 16 Pulse Ox: 100 Airway Assessment Mouth opens: >3 cm Mallampati Score: II Focused Labs Anesthesia Preop lab: CBC WBC 4.5 K/mm3 (4.4-11.0) 12/05/23 08:54 RBC 4.61 M/mm3 (4.2-5.4) 12/05/23 08:54 Hgb 14.3 g/dL (12.0-15.0) 12/05/23 08:54 Hct 43.3 % (37-47) 12/05/23 08:54 Plt Count 235 K/mm3 (150-450) 12/05/23 08:54 CHEMISTRY Potassium 3.9 mmol/L (3.5-5.1) 12/05/23 08:53 Sodium 139 mmol/L (136-145) 12/05/23 08:53 Magnesium 2.1 mg/dL (1.6-2.6) 12/05/23 08:53 BUN 10 mg/dL (7-18) 12/05/23 08:53 Creatinine 0.63 mg/dL (0.55-1.02) 12/05/23 08:53 Glucose 86 mg/dL (74-106) 12/05/23 08:53 TSH 1.88 uIU/mL (0.358-3.74) 12/05/23 08:53 COAG Pre-Assessment Diagnosis/Proposed Procedure Planned Operative Procedure(s): COLONOSCOPY-OA Anesthesia History 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 When Was Last Pacemaker Check QUESTION #4 FULL TEXT: You/Your Family Experience fever (hyperthermia) with Anesthesia Last Oral Intake Last Oral intake: Last Oral Intake NPO since Meds taken in AM with sips of water? Meds patient instructed to take am of surgery PONV PONV - security system analyst: PONV - security system analyst Female Yes 04/28/24 16:02 HX of Motion Sickness Yes 04/28/24 16:02 HX of N/V After Surgery No 04/28/24 16:02 Non-Smoker Yes 04/28/24 16:02 Duration of Surgery greater No 04/28/24 16:02 than 60 minutes Number of Risk Factors 3 04/28/24 16:02 PONV Score Moderate Risk 04/28/24 16:02 Height & Weight Height & Weight: Anesthesia: Height & Weight Height 5 ft 3 in 05/01/24 07:57 Weight: 81 kg 05/01/24 07:57 Body Mass Index (BMI) 31.6 05/01/24 07:57 Respiratory Assessment Respiratory Assessment - security system analyst: Respiratory Tract Infection Hx - security system analyst Hx Respiratory Tract Infection No 04/28/24 16:02 STOP Sleep Apnea STOP Sleep Apnea - security system analyst: STOP Sleep Apnea - security system analyst Hx Hypertension No 04/28/24 16:02 Hx Sleep Apnea No 04/28/24 16:02 CPAP BIPAP Do you snore loudly (louder No 04/28/24 16:02 than talking or can be heard Do you often feel tired/ No 04/28/24 16:02 fatigued/ sleepy during daytime? Has anyone observed you stop No 04/28/24 16:02 breathing during sleep? STOP Results Negative 04/28/24 16:02 QUESTION #5 FULL TEXT : Do you snore loudly (louder than talking or can be heard through closed doors)? 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 Specify any problems Hx of Preganancy in last 3 No 04/28/24 16:02 Months Nurse Filling Out Transfusion VCHRISTIN 04/28/24 16:02 & Questions: Date: 04/28/24 04/28/24 16:02 Time: 16:03 04/28/24 16:02 Patient unable to answer at this time (ie. confused, unrespo /Reproduction History /Reproductive History - security system analyst: /Reproductive Hx- security system analyst Hx Now No 04/28/24 16:02 Gestational Age (in weeks): EDC: Hx Hx Para Hx Section SAB No 04/28/24 16:02 [facility] History Wears glasses Wears contact lenses Post-menopausal Thyroid disease Former smoker History of Holter monitoring History of echocardiogram History of stress test Cardiology follow-up encounter Palpitations Disorder of thyroid History of anxiety Home Medications ?Medication ?Instructions ?Recorded ?Last Taken ?Type levothyroxine 50 mcg capsule 75 mcg PO DAILY 08/05/23 05/01/24 History estradiol 0.1 mg/24 hr semiweekly 1 patch transdermal 2XW #8 ea 12/24/23 Unknown Rx transdermal patch cholecalciferol (vitamin D3) 50 50 mcg PO DAILY 01/28/24 Unknown History mcg (2,000 unit) capsule omega-3 fatty acids-fish oil 360 1 cap PO DAILY 01/28/24 04/25/24 History mg-1,200 mg capsule (Fish Oil) turmeric root extract 500 mg 500 mg PO DAILY 01/28/24 04/25/24 History capsule Allergy/AdvReac Type Severity Reaction Status Date / Time hydromorphone (From Dilaudid) Allergy Mild Rash Verified 05/01/24 07:55 Family History Father Heart disease Alcoholism Surgical History History of delivery S/P KHANG (total abdominal hysterectomy) Social History household members: spouse current occupational status: employed current occupation: [employer] Smoking Status: Former smoker how long ago did patient quit smoking: in her 20's alcohol intake: current details: social substance use type: does not use caffeine: Yes Type: coffee Number of servings: 2 what type of physical activity do you participate in: yoga seatbelt use: always do you feel safe at home: Yes additional social history: [employer] Review of Systems (Anesthesia) ROS Narrative System reviewed and no additional complaints, except as documented.
--- NOTE | 2024-05-01 08:12 | HP.PCM_ITS ---
HPI - General HPI Narrative NEELIMA ARREDONDO, is a 49 F who presents for screening colonoscopy. Patient has never had a colonoscopy in the past. She denies abdominal pain or blood in the stool. She has no family history of colon cancer. [facility] Medical History Wears glasses Wears contact lenses Post-menopausal Thyroid disease Former smoker History of Holter monitoring History of echocardiogram History of stress test Cardiology follow-up encounter Palpitations Disorder of thyroid History of anxiety Home Medications ?Medication ?Instructions ?Recorded ?Last Taken ?Type levothyroxine 50 mcg capsule 75 mcg PO DAILY 08/05/23 05/01/24 History estradiol 0.1 mg/24 hr semiweekly 1 patch transdermal 2XW #8 ea 12/24/23 Unknown Rx transdermal patch cholecalciferol (vitamin D3) 50 50 mcg PO DAILY 01/28/24 Unknown History mcg (2,000 unit) capsule omega-3 fatty acids-fish oil 360 1 cap PO DAILY 01/28/24 04/25/24 History mg-1,200 mg capsule (Fish Oil) turmeric root extract 500 mg 500 mg PO DAILY 01/28/24 04/25/24 History capsule Allergy/AdvReac Type Severity Reaction Status Date / Time hydromorphone (From Dilaudid) Allergy Mild Rash Verified 05/01/24 07:55 Family History Father Heart disease Alcoholism Surgical History History of delivery S/P KHANG (total abdominal hysterectomy) Social History household members: spouse current occupational status: employed current occupation: [employer] Smoking Status: Former smoker how long ago did patient quit smoking: in her 20's alcohol intake: current details: social substance use type: does not use caffeine: Yes Type: coffee Number of servings: 2 what type of physical activity do you participate in: yoga seatbelt use: always do you feel safe at home: Yes additional social history: [employer] Past Medical/Surgical History Planned Operation Planned Operative Procedure(s): COLONOSCOPY-OA Previous Hospitalizations/Surgeries HX Hospitalizations: No Any Problems With Anesthesia: No You/Your Family Experience Fever (Hyperthermia) With Anes: No Cholinesterase deficiency: No Cardiovascular Hx of Irregular Heartbeat and/or Afib: No Hx Heart Attack: No Hx Congestive Heart Failure: No Hx Hypertension: No Hx Pacemaker: No Respiratory Hx Chronic Obstructive Pulmonary Disease (COPD): No Hx Asthma: No Hx Emphysema: No Hx Sleep Apnea: No Hx Respiratory Tract Infection/Cold (presently): No Do You Snore Loudly (louder than talking or can be heard): No Do You Often Feel Tired/ Fatigued/ Sleepy Dring Daytime?: No Has Anyone Observed You Stop Breathing During Sleep?: No Result (for STOP score): Negative Smoking Status: Former smoker Gastrointestinal Hx Ulcer: No Special diet followed at home: Yes Neurological Hx Seizures: No Hx Multiple Sclerosis: No Hx Parkinson's Disease: No Hx Head/Neck Injury: No Hx Headaches: No Hx Back Injury/Pain: No Does patient have nerve stimulator: No Reproduction : No Psycho/Social Hx Anxiety: No Hx Depression: No Miscellaneous Recent Exposure to Contagious Disease: No Allergies hydromorphone (From Dilaudid) Allergy (Mild, Verified 05/01/24 07:55) Rash Itching Discharge Is Pt Admitted From a Correction, or a Long Term: No After D/C, Where Do you Plan to Go: Return Home Vital Signs Vital Signs Vital Signs: 05/01/24 07:57 05/01/24 07:57 05/01/24 08:01 Temperature 97.8 F 97.8 F Temperature Source Temporal Pulse Rate 57 L 57 L Respiratory Rate 16 16 Respiratory Pattern Normal Blood Pressure 107/77 107/77 Blood Pressure Mean 87 Blood Pressure Source Monitor Blood Pressure Position Semi-Fowlers Blood Pressure Location Right Arm Pulse Ox 100 100 Oxygen Delivery Method Room Air Weight Weight: 178 lb 9.191 oz Body Mass Index (BMI) 31.6 Physical Exam Const alert and oriented x3 HEENT normocephalic Eyes PERRL Resp normal respiratory effort and normal air movement Cardio regular rate and regular rhythm GI soft to palpation, non-tender and non-distended Extremity normal to inspection Assessment & Plan Assessment/Plan (1) Encounter for screening for malignant neoplasm of colon: PLAN: I explained endoscopy in detail to the patient. I explained the risks including but not limited to stroke or heart attack with anesthesia, perforation of the GI tract, bleeding, infection. I explained that any of these could necessitate further emergency surgery. The patient understands and all questions were answered sufficiently. The patient wishes to proceed with procedure. Arpit Machado MD Pager: [facility] [address] [place] [address] [address] [place] [address] Office: Surgery Risks - Colonoscopy Risks Include but are not Limited To: Risks include but are not limited to: Bleeding, perforation requiring further surgery, inability to complete colonoscopy requiring barium enema.
--- NOTE | 2024-05-01 08:48 | PCM.POST.ANE ---
Anesthesia: Postop Eval I Current Vital Signs Temperature: 97.2 F Pulse Rate: 74 Blood Pressure: 87/75 Respiratory Rate: 16 Pulse Ox: 100 Assessment Airway patent: Yes Spontaneous unlabored respirations: Yes Mental status: Awake and Calm nausea: No Vomiting: No Anesthesia Complication: No Fluid Hydration Crystalloid volume administer (ml): 40 Total IV fluid infused: 40 Progress Note Anesthesia document: Postop Eval 1 completed: Yes
--- NOTE | 2024-05-04 15:27 | OP.COLON_ITS ---
Patient Name: Bella Dalton Procedure Date: 05/01/2024 8:07 AM Date of : 1975 Age: 49 Procedure: Colonoscopy Indications: Screening for colorectal malignant neoplasm Providers: Arpit Machado MD Medicines: Propofol per Anesthesia Patient Profile: This is a 49 year old female. Refer to note in patient chart for documentation of history and physical. Last Colonoscopy: none. The patient's first colonoscopy is today. Complications: No immediate complications. Procedure: Pre-Anesthesia Assessment: - Prior to the procedure, a History and Physical was performed, and patient medications and allergies were reviewed. The patient's tolerance of previous anesthesia was also reviewed. The risks and benefits of the procedure and the sedation options and risks were discussed with the patient. All questions were answered, and informed consent was obtained. Prior Anticoagulants: The patient has taken no anticoagulant or antiplatelet agents. After reviewing the risks and benefits, the patient was deemed in satisfactory condition to undergo the procedure. After I obtained informed consent, the scope was passed under direct vision. Throughout the procedure, the patient's blood pressure, pulse, and oxygen saturations were monitored continuously. The colonoscope was introduced through the anus and advanced to the cecum, identified by appendiceal orifice and ileocecal valve. The colonoscopy was performed without difficulty. The patient tolerated the procedure well. The quality of the bowel preparation was good. The ileocecal valve, appendiceal orifice, and rectum were photographed. Scope In: 8:22:28 AM Scope Withdrawal Time 0 hours 6 minutes 49 seconds Scope Out: 8:36:49 AM Total Procedure Duration Time 0 hours 14 minutes 21 seconds Findings: The entire examined colon appeared normal on direct and retroflexion views. Impression: - The entire examined colon is normal on direct and retroflexion views. - No specimens collected. Recommendation: - Discharge patient to home. - Resume previous diet. - Continue present medications. - Repeat colonoscopy in 10 years for screening purposes. Procedure Code(s): --- Professional --- 60774, Colonoscopy, flexible; diagnostic, including collection of specimen(s) by brushing or washing, when performed (separate procedure) Diagnosis Code(s): --- Professional --- Z12.11, Encounter for screening for malignant neoplasm of colon CPT copyright 2021 [employer]. All rights reserved. The codes documented in this report are preliminary and upon hand bulldozer review may be revised to meet current compliance requirements. Arpit Machado MD 05/01/2024 8:38:50 AM This report has been signed electronically. Number of Addenda: 0 Note Initiated On: 05/01/2024 8:07 AM
--- NOTE | 2024-05-04 15:27 | OP.CCLET_ITS ---
05/01/2024 Jeff Schuster MD [address] [place] [address] Re : Colonoscopy procedure for Bella Sha Dear Dr. Schuster This procedure was performed on Wednesday, May 01, 2024. My impressions and recommendations are as follows: Impressions : - The entire examined colon is normal on direct and retroflexion views. - No specimens collected. Recommendations : - Discharge patient to home. - Resume previous diet. - Continue present medications. - Repeat colonoscopy in 10 years for screening purposes. My findings are described in the full procedure note, which is enclosed. If I can be of further assistance, please feel free to contact me at Doctor phone number(s): , Work: . Sincerely, Arpit Machado MD 05/01/2024 8:38:50 AM This report has been signed electronically.
== END 2024-05-01 09:28 | disposition home or self-care (01) ==
LOC: EN 07:47 → AC 07:48
PROVIDERS: PCP Family Medicine; Referring Provider Family Medicine; Visit Provider Surgery
PROC: 0DJD8ZZ Inspection of Lower Intestinal Tract, Via Natural or Artificial Opening Endoscopic (ICD-10-PCS; CPT 45378; principal; 2024-05-01 08:40)
DX: Z12.11 Encounter for screening for malignant neoplasm of colon (principal); Z90.710 Acquired absence of both cervix and uterus; Z87.891 Personal history of nicotine dependence; Z79.899 Other long term (current) drug therapy
CPT/HCPCS: 45378; A4216; J2405

== ENCOUNTER → 2024-06-03 | Outpatient (CLI) | payer BC, SELFPAY ==
[2024-06-03 10:57] LABS: Cholesterol 186 mg/dL (200); Free T3 2.3 pg/mL (2.18-3.98); High Density Lipoprotein 89 mg/dL; T4 Free Direct 1.09 ng/dL (0.76-1.46); Triglycerides 60 mg/dL; Very Low Density Lipoprotein 12 mg/dL (5-40)
== END | disposition home or self-care (01) ==
LOC: MFPLAB 09:04
PROVIDERS: PCP Family Medicine; Visit Provider Family Medicine
DX: Z13.220 Encounter for screening for lipoid disorders (principal); E03.9 Hypothyroidism, unspecified
CPT/HCPCS: 36415; 80061; 84439; 84443; 84481

== ENCOUNTER → 2024-09-11 | Outpatient (CLI) | payer BC, SELFPAY ==
[2024-09-11 20:06] LABS: Free T3 2.3 pg/mL (2.18-3.98)
== END | disposition home or self-care (01) ==
LOC: MTLAB 15:15
PROVIDERS: PCP Family Medicine; Referring Provider Family Medicine; Visit Provider Family Medicine
DX: E03.9 Hypothyroidism, unspecified (principal)
CPT/HCPCS: 36415; 84439; 84443; 84481

== ENCOUNTER → 2024-09-25 | Outpatient (CLI) | payer BC, SELFPAY ==
--- NOTE | 2024-09-25 08:15 | BI_ITS ---
PROCEDURE: SCRN MAMM (CAD)W/YARELIS BILAT REASON FOR EXAM: F, Age 49 y/o , SCREENING MAMMOGRAM. No family history of breast cancer. TECHNIQUE: Bilateral screening digital breast tomosynthesis with 2D and 3D images. Computer aided detection. COMPARISON: 09/25/2023, 07/26/2022 . FINDINGS: There are scattered areas of fibroglandular density. No suspicious masses, areas of developing architectural distortion, or suspicious calcifications. BI/SCRN MAMM (CAD)W/YARELIS BILAT IMPRESSION: There is no mammographic evidence of malignancy. BI-RADS 1: NEGATIVE. RECOMMEND ANNUAL MAMMOGRAPHIC SCREENING. Follow-up code: Routine Follow-up The patient will be notified of the results by letter. Reading Location: [id number]
== END | disposition home or self-care (01) ==
LOC: OPBI 08:19
PROVIDERS: PCP Family Medicine; Referring Provider Obstetrics & Gynecology; Visit Provider Obstetrics & Gynecology
DX: Z12.31 Encounter for screening mammogram for malignant neoplasm of breast (principal)
CPT/HCPCS: 77063; 77067

== ENCOUNTER → 2025-03-18 | Outpatient (CLI) | payer BC, SELFPAY ==
[2025-03-18 11:37] LABS: Anion Gap 9 (5-15); BUN 13 mg/dL (4-19); BUN/Creat Ratio 17.9 RATIO (10-20); Calcium,Total 8.8 mg/dL (7.6-11.0); Carbon Dioxide 24.4 mmol/L (21.0-32.0); Chloride 107 mmol/L (98-108); Cholesterol 176 mg/dL (<=200); Free T3 2.3 pg/mL (2.18-3.98); Glucose 87 mg/dL (70-99); Low Density Lipoprotein Calc. 77 mg/dL; Potassium 3.8 mmol/L (3.3-5.1); Triglycerides 68 mg/dL; Very Low Density Lipoprotein 14 mg/dL (5-40); cholesterol:hdl ratio screen 2.06
== END | disposition home or self-care (01) ==
LOC: MFPLAB 09:05
PROVIDERS: PCP Family Medicine; Visit Provider Family Medicine
DX: Z00.00 Encounter for general adult medical examination without abnormal findings (principal); E03.9 Hypothyroidism, unspecified
CPT/HCPCS: 36415; 80048; 80061; 84439; 84443; 84481